=== PATIENT | male | born 2000 | race Caucasian/White ===

== ENCOUNTER 2021-06-25 13:42 | Emergency (ER) | payer OTHER ==
[~2021-06-25 13:42] MED LIST: LIDEX0.05% T; MOTRIN 400 MG E4 TAB PO; PREDNISONE10 MG PO; SENOKOT1 TAB PO; STRATTERA80 MG PO; ZOFRAN ODT4 MG PO
== END 2021-06-25 18:42 | disposition left against medical advice (07) ==
LOC: ED 13:42
DX: Z20.2 Contact with and (suspected) exposure to infections with a predominantly sexual mode of transmission (principal); Z53.21 Procedure and treatment not carried out due to patient leaving prior to being seen by health care provider

== ENCOUNTER 2021-09-28 13:36 | Emergency (ER) | payer OTHER ==
[~2021-09-28] VITALS: Ht 195.5 cm; Wt 100.7 kg
[2021-09-28 14:30] LABS: BILIRUBIN Negative (Negative); BLOOD Negative (Negative); CLARITY Clear (Clear); COLOR Yellow (Yellow); GLUCOSE Negative (Negative); KETONE Negative (Negative); LEUKO ESTERASE 1+ (Negative); NITRITE Negative (Negative); SPECIFIC GRAVITY <= 1.005 (1.001-1.030); UROBILINOGEN 0.2 E.U./dl (0.0-1.0)
[2021-09-28 15:08] LABS: BACTERIA 2+; EPITHELIAL CELLS 0-2
== END 2021-09-28 14:30 | disposition home or self-care (01) ==
LOC: ED 13:36
PROVIDERS: Nurse Practitioner Family
DX: A64 Unspecified sexually transmitted disease (principal); Z79.899 Other long term (current) drug therapy

== ENCOUNTER 2021-10-14 17:11 | Emergency (ER) | payer OTHER ==
[~2021-10-14] VITALS: Ht 195.5 cm; Wt 101.6 kg
== END 2021-10-14 18:34 | disposition left against medical advice (07) ==
LOC: ED 17:11
DX: Z53.21 Procedure and treatment not carried out due to patient leaving prior to being seen by health care provider (principal)

== ENCOUNTER 2021-12-02 20:25 | Emergency (ER) | payer OTHER ==
[~2021-12-02] VITALS: Ht 195.5 cm; Wt 104.3 kg
== END 2021-12-02 22:48 | disposition short-term general hospital (02) ==
LOC: ED 20:25
DX: M79.89 Other specified soft tissue disorders (principal); R20.2 Paresthesia of skin; Z79.899 Other long term (current) drug therapy; V27.9XXA Unspecified motorcycle rider injured in collision with fixed or stationary object in traffic accident, initial encounter; Y93.89 Activity, other specified; Y92.89 Other specified places as the place of occurrence of the external cause; Y99.8 Other external cause status